=== PATIENT | female | born 1970 | race American Indian/Alaskan Native ===

== ENCOUNTER 2017-03-08 06:54 | Emergency (ER) | payer OTHER ==
[2017-03-08 07:24] VITALS: BP 144/99
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
== END 2017-03-08 10:16 | disposition home or self-care (01) ==
LOC: ED 06:54
DX: M25.571 Pain in right ankle and joints of right foot (principal); M25.572 Pain in left ankle and joints of left foot; M25.531 Pain in right wrist
CPT/HCPCS: 99282

== ENCOUNTER 2017-08-15 02:35 | Emergency (ER) | payer OTHER | END 2017-08-15 03:56 | disposition left against medical advice (07) | LOC: ED 02:35 | DX: M79.604 Pain in right leg (principal); Z53.21 Procedure and treatment not carried out due to patient leaving prior to being seen by health care provider ==

== ENCOUNTER 2020-01-13 09:03 | Emergency (ER) | payer OTHER ==
[2020-01-13] MEDS ORDERED: IBUPROFEN 800 MG TAB PO ONE (09:22)
[2020-01-13] MEDS ORDERED: HYDROcodone/ACETAMINOPHEN 5-325 MG TAB PO ONE (09:22)
[2020-01-13 09:46] LABS: Basophils % (Auto) 0.5 % (0.0-1.8); Eosinophils # (Auto) 0.1 K/mm3 (0.0-0.4); Eosinophils % (Auto) 0.8 % (0.0-4.3); Hematocrit 39.1 % (30.3-42.9); Hemoglobin 12.9 gm/dl (10.1-14.3); Lymphocytes # (Auto) 0.7 K/mm3 (1.2-5.4); Lymphocytes % (Auto) 9.4 % (13.4-35.0); Mean Corpuscular HGB Conc 33 % (30-34); Mean Corpuscular Volume 81 fl (79-97); Monocytes # (Auto) 0.5 K/mm3 (0.0-0.8); Monocytes % (Auto) 6.6 % (0.0-7.3); Platelet Count 203 K/mm3 (140-440); Red Blood Count 4.81 M/mm3 (3.65-5.03)
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
--- NOTE | 2020-01-13 09:56 | XRay Report ---
CHEST 1 VIEW INDICATION / CLINICAL INFORMATION: Chest Pain. COMPARISON: 03/25/2017 FINDINGS: SUPPORT DEVICES: None. HEART / MEDIASTINUM: No significant abnormality. LUNGS / PLEURA: No significant pulmonary or pleural abnormality.. No pneumothorax. ADDITIONAL FINDINGS: No significant additional findings. IMPRESSION: 1. No acute findings. Signer Name: Buck Jon MD Signed: 01/13/2020 9:51 AM Workstation Name: [id number]
[2020-01-13 10:02] LABS: Alanine Aminotransferase 12 units/L (7-56); Albumin 4.1 g/dL (3.9-5); BUN/Creatinine Ratio 19; Blood Urea Nitrogen 13 mg/dL (7-17); Calcium 9.6 mg/dL (8.4-10.2); Hemolysis Index 10
[2020-01-13 10:04] LABS: Red Cell Distribution Width 21.1 % (13.2-15.2)
[2020-01-13 14:18] VITALS: BP 125/78
== END 2020-01-13 13:50 | disposition home or self-care (01) ==
LOC: ED 09:03
DX: M32.9 Systemic lupus erythematosus, unspecified (principal); R55 Syncope and collapse
CPT/HCPCS: 36415; 71045; 80053; 84484; 85025; 93005; 93010